=== PATIENT | male | born 1995 | race Caucasian/White ===

== ENCOUNTER 2019-02-26 15:44 | Emergency (ER) | payer SELFPAY ==
[2019-02-26 15:58] VITALS: BP 123/62
--- NOTE | 2019-02-26 21:32 | UC ---
General HPI - HPI Summary HPI Summary: 23-year-old male who is here for STD screening. He has no symptoms today. He states that he has been sexually active with a partner who told him recently that she had hepatitis C. He had not been using condoms. - History of Current Complaint Chief Complaint: UCSTDScreening Stated Complaint: PERSONAL Time Seen by Provider: 02/26/19 15:53 Hx Obtained From: Patient Onset/Duration: Other - No symptoms Current Severity: None Pain Intensity: 0 - Allergy/Home Medications Allergies/Adverse Reactions: Allergies Allergy/AdvReac Type Severity Reaction Status Date / Time atomoxetine [From Strattera] Allergy See Comment Verified 02/26/19 15:59 Home Medications: Home Medications NK [No Home Medications Reported] 02/26/19 [History Confirmed 02/26/19] PMH/Surg Hx/FS Hx/Imm Hx Previously Healthy: Yes - Surgical History Surgical History: None - Family History Known Family History: Positive: Cardiac Disease, Diabetes - Social History Alcohol Use: Rare Substance Use Type: Marijuana Smoking Status (MU): Current Some Day Smoker Type: Cigars Amount Used/How Often: 1-2 cigars per week - Immunization History Most Recent Influenza Vaccination: Fall 2014 Review of Systems All Other Systems Reviewed And Are Negative: Yes Is Patient Immunocompromised?: No Physical Exam Triage Information Reviewed: Yes Appearance: Well-Appearing, No Pain Distress, Well-Nourished Vital Signs: Initial Vital Signs Temp 98.1 F 02/26/19 15:53 Pulse 69 02/26/19 15:53 Resp 16 02/26/19 15:53 BP 123/62 02/26/19 15:53 Pulse Ox 97 02/26/19 15:53 Vital Signs Reviewed: Yes Respiratory: Positive: Lungs clear, Normal breath sounds, No respiratory distress, No accessory muscle use Cardiovascular: Positive: RRR, No Murmur, Pulses Normal, Brisk Capillary Refill Musculoskeletal Exam: Normal Neurological Exam: Normal Psychological Exam: Normal Skin Exam: Normal Course/Dx - Course Course Of Treatment: The patient was given information on sexually transmitted diseases. He was advised to use condoms when he is sexually active. He is to have no sex until reports from the hepatitis B, hepatitis C and HIV testing as well as a urine test for GC and chlamydia are resulted. - Diagnoses Provider Diagnosis: STD exposure Discharge - Sign-Out/Discharge Documenting (check all that apply): Patient Departure All imaging exams completed and their final reports reviewed: No Studies - Discharge Plan Condition: Good Disposition: HOME Patient Education Materials: Sexually Transmitted Diseases (ED), Safe Sex (ED) Referrals: [facility] [Outside] No Primary Care Phys,NOPCP [Primary Care Provider] - Additional Instructions: No sexual intercourse until you know the results of all the tests, always wear condoms. - Billing Disposition and Condition Condition: GOOD Disposition: Home - Attestation Statements Provider Attestation: I was available for consult. This patient was seen by the SID. The patient was not presented to, seen by, or examined by me. -Radha
[2019-02-27 15:29] LABS: Hepatitis B Surface Antigen Negative (Negative)
[2019-02-27 15:46] LABS: Hepatitis B Surface Ab Not Immune (Immune); Hepatitis C Antibody Negative (Negative)
[2019-02-27 16:01] LABS: HIV 4th Generation Negative (Negative)
--- NOTE | 2019-02-28 07:16 | UC ---
- Progress Note Progress Note: Please notify patient his Hepatitis B and C testing and HIV testing was negative. I recommend he obtain the Hepatitis B vaccine series with his primary care provider. GC/Chlamydia testing results are still pending. Course/Dx - Diagnoses Provider Diagnoses: STD exposure Discharge - Sign-Out/Discharge Documenting (check all that apply): Post-Discharge Follow Up All imaging exams completed and their final reports reviewed: No Studies - Discharge Plan Condition: Good Disposition: HOME Patient Education Materials: Sexually Transmitted Diseases (ED), Safe Sex (ED) Referrals: [facility] [Outside] No Primary Care Phys,NOPCP [Primary Care Provider] - Additional Instructions: No sexual intercourse until you know the results of all the tests, always wear condoms. - Billing Disposition and Condition Condition: GOOD Disposition: Home
[2019-03-01 13:02] LABS: Chlamydia trachomatis NAA Negative (Negative); Neisseria gonorrhoeae (GC) NAA Negative (Negative)
== END 2019-02-26 16:35 | disposition home or self-care (01) ==
LOC: UCCORT 15:44
DX: Z20.2 Contact with and (suspected) exposure to infections with a predominantly sexual mode of transmission (principal); Z20.5 Contact with and (suspected) exposure to viral hepatitis; Z88.8 Allergy status to other drugs, medicaments and biological substances; F17.290 Nicotine dependence, other tobacco product, uncomplicated
CPT/HCPCS: 36415; 86706; 86803; 87340; 87389; 87491; 87591; 99201; G0463

== ENCOUNTER 2019-04-06 12:07 | Emergency (ER) | payer SELFPAY ==
[2019-04-06 12:19] VITALS: BP 107/55
--- NOTE | 2019-04-06 13:53 | UC ---
Dental HPI - HPI Summary HPI Summary: Patient is a 23yo male presenting with impacted wisdom teeth pain x3 days. States both bottom lower wisdom teeth are impacted. Notes right one is broken in half and the left has chipped as well. Patient rating pain as 5/10 and describes it as an ache. Patient is worried about infection of the teeth and gums. Denies swelling or drainage from gums. Denies fever and chills. Denies n/ v. States orajel is helping some. Patient has a hard time chewing hard food. - History of Current Complaint Chief Complaint: UCDentalProblem Stated Complaint: TOOTH ACHE Time Seen by Provider: 04/06/19 13:14 Hx Obtained From: Patient Onset/Duration: Gradual Onset, Lasting Days Severity: Moderate Pain Intensity: 5 Pain Scale Used: 0-10 Numeric Alleviating Factor(s): Topical Meds - Allergies/Home Medications Allergies/Adverse Reactions: Allergies Allergy/AdvReac Type Severity Reaction Status Date / Time atomoxetine [From Strattera] Allergy See Comment Verified 04/06/19 12:19 PMH/Surg Hx/FS Hx/Imm Hx - Surgical History Surgical History: None Surgery Procedure, Year, and Place: endoscopy - Family History Known Family History: Positive: Cardiac Disease, Diabetes - Social History Alcohol Use: Rare Substance Use Type: Marijuana Smoking Status (MU): Current Some Day Smoker Type: Cigars Amount Used/How Often: 1-2 cigars per week - Immunization History Most Recent Influenza Vaccination: Fall 2014 Review of Systems All Other Systems Reviewed And Are Negative: No Constitutional: Positive: Negative. Negative: Fever, Chills, Fatigue Skin: Positive: Negative Eyes: Positive: Negative ENT: Positive: Dental Pain. Negative: Sore Throat, Ear Ache, Nasal Discharge, Sinus Congestion Respiratory: Positive: Negative. Negative: Shortness Of Breath, Cough Cardiovascular: Positive: Negative Gastrointestinal: Positive: Negative. Negative: Vomiting, Nausea Musculoskeletal: Negative: Edema Neurological: Negative: Headache, Paresthesia, Numbness Physical Exam Triage Information Reviewed: Yes Appearance: Well-Appearing, No Pain Distress, Well-Nourished Vital Signs: Initial Vital Signs Temp 97.8 F 04/06/19 12:15 Pulse 78 04/06/19 12:15 Resp 18 04/06/19 12:15 BP 107/55 04/06/19 12:15 Pulse Ox 99 04/06/19 12:15 Vital Signs Reviewed: Yes Eyes: Positive: Conjunctiva Clear ENT: Positive: Hearing grossly normal, Pharynx normal, TMs normal, Dental tenderness, Uvula midline. Negative: Nasal congestion, Nasal drainage, Tonsillar swelling, Trismus, Muffled voice, Hoarse voice Dental Exam: Other - no sign of dental abscesses or local infection Dental: Positive: Dental Fracture @ - 32, Other: - impacted wisdom teeth #17 and #32. Negative: Abscess @, Cervical Lymphadenopathy, Bleeding - no bleeding, drainage, or swelling noted of gums Neck exam: Normal Neck: Positive: Supple, Nontender, No Lymphadenopathy Respiratory Exam: Normal Respiratory: Positive: Lungs clear, Normal breath sounds, No respiratory distress Cardiovascular Exam: Normal Cardiovascular: Positive: RRR. Negative: Tachycardia Neurological: Positive: Alert Psychological: Positive: Age Appropriate Behavior Dental Complaint Course/Dx - Course Course Of Treatment: Discussed with patient that there are no signs of infection or dental abscess. Instructed patient to continue with orajel and ibuprfen as directed for pain relief until he can follow up with a dentist. I told the patient it is important for him to follow up as soon as possible to avoid infection and relieve his pain. I informed the patient that he should return or go to the ED if he experiences fever, n/v, bleeding, swelling, or drainage from the gums. Patient voiced understanding and agreed to treatment plan. - Differential Dx/Diagnosis Provider Diagnosis: Pain, dental, Fractured tooth Discharge ED - Sign-Out/Discharge Documenting (check all that apply): Patient Departure All imaging exams completed and their final reports reviewed: No Studies - Discharge Plan Condition: Stable Disposition: HOME Patient Education Materials: Toothache (ED) Referrals: No Primary Care Phys,NOPCP [Primary Care Provider] - Additional Instructions: As discussed, there are no signs of infection of your wisdom teeth today. You may take ibuprofen as directed for pain relief. You may continue to use orajel. Eat softer foods to decrease pain with eating. Burwell your teeth at least twice a day. It is important that you follow up with a dentist as soon as possible to have those teeth removed and to avoid infection. There are two dentist referrals listed below that you can contact for an appointment. Return or go to the emergency room if you experience drainage from your gums, severe swelling of your gums, fever, nausea, or vomiting. Sergio Jha [address] [place] [address] Caesar Lim [address] [place] [address] - Billing Disposition and Condition Condition: STABLE Disposition: Home
== END 2019-04-06 13:52 | disposition home or self-care (01) ==
LOC: UCEAST 12:07
DX: S02.5XXA Fracture of tooth (traumatic), initial encounter for closed fracture (principal); X58.XXXA Exposure to other specified factors, initial encounter; Y92.9 Unspecified place or not applicable; F17.210 Nicotine dependence, cigarettes, uncomplicated
CPT/HCPCS: 99211; G0463